=== PATIENT | female | born 1955 | race African-American/Black ===

== ENCOUNTER 2016-12-30 21:25 | Inpatient (IN) ==
[2016-12-30] MEDS ORDERED: ONDANSETRON 4 MG/2 ML VIAL IV STA (22:27)
[2016-12-30] MEDS ORDERED: SODIUM CHLORIDE 0.9% 1,000 ML IV STA (22:27)
[2016-12-30] MEDS ORDERED: PANTOPRAZOLE 40 MG VIAL IV STA (22:27)
[2016-12-30] MEDS ORDERED: METOCLOPRAMIDE 10 MG/2 ML VIAL IV STA (22:29)
--- NOTE | 2016-12-30 22:31 | Emergency Department Note ---
Arrival - Arrival Chief Complaint: Abdominal / Flank Pain Stated Complaint: stomach pain, cant keep food down ED Nursing Triage Note: C/O Left sided/upper abd pain/nasuea/vomiting. Onset lastnight. Denies diarrhea. Denies fever. Last [id number] Mode of Arrival: Ambulatory Limitations: No Limitations Source: Patient Time Seen by Provider: 12/30/16 22:27 - History of Present Illness HPI Narrative: This 61-year-old black female presents with abrupt onset of crampy abdominal pain, nausea, vomiting after waking this morning. She denies heartburn, belching, water brash, diarrhea, chills, or fever. She does not have a prior history of GERD, peptic ulcer disease, pancreatitis, or gallbladder disease. Onset (ago): hour(s) (Patient presents 12 hours post onset of symptoms) Date of Last Menstrual Period: Hysterectomy Allergies/Adverse Reactions: Allergies Allergy/AdvReac Type Severity Reaction Status Date / Time Amoxicillin Allergy HIVES Verified 12/30/16 22:51 Home Medications: Home Medications Medication Instructions Recorded Confirmed Type Bimatoprost 0.01% Oph Soln 1 drop BOTH EYES BEDTIME 12/30/16 12/30/16 History [Lumigan] Metoprolol Tartrate 100 mg PO DAILY 12/30/16 12/30/16 History Triamterene/Hydrochlorothiazid 1 each PO BID 12/30/16 12/30/16 History [Triamterene-Hctz 37.5-25 mg Tb] Review of System - Review of System 12 point system: reviewed and no additional remarkable complaints except as stated - Review of System Constitutional: Present: as per HPI Gastrointestinal: Present: as per HPI Medical,Surgical,& Family Hx - Medical History Cardio: History of: Hypertension - Social History Smoking Status: Never smoker Frequency of Alcohol Use: None Type of Drug Use: None Exam Physical Examination: GENERAL: Well developed, well nourished black female in no acute distress. HEENT: Normocephalic. No trauma. Moist mucous membranes. EOMI. PERRLA. ENT NML NECK: Supple. No adenopathy. CARDIAC: Regular. No murmurs. Heart rate 114 CHEST: Clear to auscultation. No respiratory distress. O2 sat 97% ABDOMEN: Soft. Diffusely tender, hyperactive bowel sounds. EXTREMITIES: No trauma. Normal ROM. No pedal edema. SKIN: No diaphoresis. No rash. NEURO: Alert. Neuro intact no focal deficits. Vital Signs: Vital Signs Temperature 98.3 F 12/30/16 21:31 Pulse Rate 114 H 12/30/16 21:31 Respiratory Rate 18 12/30/16 21:31 Blood Pressure 155/81 12/30/16 21:31 O2 Sat by Pulse Oximetry 97 12/30/16 21:31 Course - Reevaluation(s) Reevaluation #1: Advised patient she would need hospitalization for pancreatitis. - Consultations Consultation #1: Discussed with hospitalist service who will admit for further evaluation treatment. Results - Labs CBC & BMP: 12/30/16 23:00 12/30/16 23:00 Labs: I have noted the bump in white count, low potassium, and elevated lipase. - Impressions EKG: Sinus tachycardia at 100 with normal UT interval and QRS duration. Evidence of LVH with diffuse nonspecific ST changes but no acute injury pattern noted. - Diagnostic Findings Procedure: Abdominal x-ray: image reviewed by me, report reviewed by me (Fecal stasis) Disposition Clinical Impression: Pancreatitis Case discussed with: patient Disposition: Still a Patient Condition: Guarded Time of Disposition: 23:59
[2016-12-30] MEDS ORDERED: METOCLOPRAMIDE 10 MG/2 ML VIAL ONE (22:54)
[2016-12-30] MEDS ORDERED: PANTOPRAZOLE 40 MG VIAL IV ONE (22:54)
[2016-12-30] MEDS ORDERED: ONDANSETRON 4 MG/2 ML VIAL ONE (22:54)
--- NOTE | 2016-12-30 23:08 | EKG Report ---
Stationary ECG Study [facility] ER Test Date: 12/30/2016 11:07:46 PM Pat Name: MARCUS HAIRSTON Department: Room: Gender: F Finger Waver: : 1955 Requested by: Je Navarro Order Number: [id number] Reading MD: LIMA UGARTE Intervals Terral Rate: 101 P: 44 IA: 174 QRS: 21 QRSD: 80 T: 23 QT: 283 QTc: 341 Interpretive Statements SINUS TACHYCARDIA MODERATE VOLTAGE CRITERIA FOR LVH, CONSIDER NORMAL VARIANT Electronically Signed On 12-31-16 20:58:12 CDT by LIMA UGARTE [email or web address]
[2016-12-30 23:24] LABS: Basophils % 0.2 % (0.0-0.8); Hematocrit 37.1 VOL% (35.7-47.0); Hemoglobin 12.5 GM/DL (12.0-16.0); Immature Granulocytes % 0.8 %; Lymphocytes # 1.1 10*3/uL (1.4-4.0); Lymphocytes % 8.5 % (21.3-54.2); Mean Corpuscular HGB Conc 33.7 GM/DL (32-36); Mean Corpuscular Hemoglobin 30 PG (27-34); Mean Corpuscular Volume 88.8 FL (87-102); Mean Platelet Volume 9.5 FL (9.6-12.0); Monocytes # 1.2 10*3/uL (0.11-0.8); Monocytes % 9.3 % (1.7-12.7); Neutrophils # 10.6 10*3/uL (1.4-7.4); Neutrophils % 81.2 % (38.7-73.9); Platelet Count 251 T/CUMM (130-400); Red Blood Count 4.18 MC/CUMM (3.8-5.5); Red Cell Distribution Width 12.6 % (9.3-17.3); White Blood Count 13.1 T/CUMM (4-12)
[2016-12-30 23:35] LABS: Albumin 3.4 G/DL (3.4-5.0); Bilirubin,Total 0.4 MG/DL (0.2-1.0); Calcium 9.4 MG/DL (8.5-10.1); Potassium 3.1 MMOL/L (3.5-5.1); Total Protein 7.8 G/DL (6.4-8.3)
[2016-12-30 23:37] LABS: Apearance,Urine Slightly Hazy (Clear); Bilirubin,Urine Negative (Negative); Blood, Urine Negative (Negative); Glucose,Urine (UA) Negative (Negative); Ketones,Urine 20 mg/dL (Negative); Mucus,Urine Occasional /LPF (Occasional); Nitrite,Urine Negative (Negative); Protein,Urine Negative; RBC,Urine 1 /HPF (0-4); Squamous Epithelial Cell,Urine Occasional /HPF (0-10); Urine Color Yellow (Yellow); Urine Specific Gravity 1.028 (1.001-1.035); Urine Urobilinogen < 2.0 EU/DL (0.2-1.0); WBC,Urine 1 /HPF (0-6)
[2016-12-30 23:44] LABS: Troponin I Only < 0.015 NG/ML (0.00-0.045)
[2016-12-30 23:47] LABS: Lactic Acid 2.1 MMOL/L (0.4-2.0)
[2016-12-31] MEDS ORDERED: ONDANSETRON 4 MG/2 ML VIAL IV STA (00:25)
[2016-12-31] MEDS ORDERED: ONDANSETRON 4 MG/2 ML VIAL ONE ×3 (00:26→10:24)
--- NOTE | 2016-12-31 00:43 | Hospitalist History & Physical ---
Assessment and Plan - Time spent with patient Time spent with patient: Less than 30 minutes (1) Pancreatitis Status: Acute Assessment and plan: Pending CT scan Elevated amylase and lipase Will start Cipro IV Pain and nausea meds PRN Accuchecks ACHS with SSI Current Visit: Yes (2) Lactic acidosis Status: Acute Assessment and plan: Fluid resuscitation Will recheck in 6 hours Current Visit: Yes (3) Hypokalemia Status: Acute Assessment and plan: K rider Will recheck post replacement Current Visit: Yes (4) Leukocytosis Status: Acute Assessment and plan: Pending blood cultures Will start Cipro IV Afebrile at this time Current Visit: Yes (5) Hypertension Status: Chronic Assessment and plan: Will start home meds once confirmed Current Visit: No History of Present Illness Chief complaint: abdominal pain History of present illness: Called to the ER for Ms. Hugo who is a 61 year old female that began having upper abdominal pain last night around 2030 after getting out of the shower. Patient states it radiates around her left side into her back. She admits to multiple episodes of vomiting over the course of a day but denies chest pain, shortness of breath, fever, chills, coughing, or dysuria. Her last BM was at 1400 yesterday and describes it as normal. Lab work was performed that showed an elevated lipase, elevated white blood cell count, and lactic acidosis. CT A\ P is pending. Patient has a history of HTN, glaucoma, partial hysterectomy, and tubal ligation. She will be admitted into the hospital for fluid resuscitation, pain and nausea medications, IV antibiotics, ACHS with SSI, and repeat lab work. Home medications will be resumed once confirmed. Home Medications Medication Instructions Recorded Confirmed Type Bimatoprost 0.01% Oph Soln 1 drop BOTH EYES BEDTIME 12/30/16 12/30/16 History [Lumigan] Metoprolol Tartrate 100 mg PO DAILY 12/30/16 12/30/16 History Triamterene/Hydrochlorothiazid 1 each PO BID 12/30/16 12/30/16 History [Triamterene-Hctz 37.5-25 mg Tb] Allergies Allergy/AdvReac Type Severity Reaction Status Date / Time Amoxicillin Allergy HIVES Verified 12/30/16 22:51 Medical,Surgical,& Family Hx - Medical History Cardio: History of: Hypertension No history of: Cerebrovascular Disease, CHF Psychological: No history of: Anxiety Disorders Neurology: No history of: Neurological Problems HEENT: History of: Glaucoma, HEENT Problems (allergies) Endocrine: No history of: Endocrine Problems Rheumatology: No history of;: Rheumatological Problems Respiratory: No history of: Respiratory Problems Renal: No history of: Renal Problems Genitourinary: No history of: Problems Gastrointestinal: No history of: GI Problems Musculoskeletal: No history of: Musculoskeletal Problems Hematology: No history of: Blood Disorders Other: No history of: Skin Problems - Surgical History Reproductive Surgeries: Surgical HX of;: Dilation and Curettage, Hysterectomy ( partial) - Social History Smoking Status: Never smoker Have you smoked in the last 12 months: No Frequency of Alcohol Use: None Type of Drug Use: None Marital Status: Single Lives With:: Children Functional capacity: independent ambulation - Constitutional Constitutional: Present: anorexia. Absent: chills, fatigue, fever(s), night sweats, weakness - EENT Eyes: Absent: blurry vision - Cardiovascular Cardiovascular: Absent: chest pain at rest, chest pain with activity, diaphoresis, dyspnea, edema, lightheadedness, palpitations - Respiratory Respiratory: Absent: cough, dyspnea - Gastrointestinal Gastrointestinal: Present: abdominal pain (LUQ and RUQ), nausea, vomiting. Absent: coffee ground emesis, constipation, diarrhea, dyspepsia, dysphagia - Hematologic/Lymphatic Hematologic/Lymphatic: Absent: easy bleeding Exam - Constitutional Vitals: Period Temp Pulse Resp BP Sys/Jacome Pulse Ox Last 24 Hr 98.3 F 114 18 155/81 97 General appearance: normal weight, mild distress (nauseated) - Head Head exam: Present: normal inspection, normocephalic - Eye Eye exam: Present: EOMI Pupils: Present: LARRY, normal accommodation - ENT ENT exam: Present: normal exam - Neck Neck exam: Present: normal inspection - Respiratory Respiratory exam: Present: clear to auscultation bilaterally. Absent: accessory muscle use (Respirations even and non-labored with symmetrical rise and fall of chest noted. ) - Cardiovascular Cardiovascular exam: Present: regular rate and rhythm - GI/Abdominal GI/Abdominal exam: Present: hypoactive bowel sounds. Absent: distended, tenderness, soft - Extremities Exam Extremities exam: Present: normal inspection, normal capillary refill, full ROM - Back Exam Back exam: Present: normal inspection - Neurological Exam Neurological exam: Present: alert (Answers all questions appropriately. Makes good eye contact. ), oriented X3 - Psychiatric Psychiatric exam: Present: normal affect, normal mood - Skin Skin exam: Present: normal color, warm, dry, intact Results - Labs CBC & BMP: 12/30/16 23:00 12/30/16 23:00 Lab Results: I have reviewed the past 24 hour labs - EKG EKG results: WNL (Sinus tachycardia) - Diagnostic Findings Procedure: Abdominal x-ray: image reviewed by me (Fecal Stasis)
[2016-12-31] MEDS ORDERED: DOCUSATE SODIUM 100 MG CAPSULE PO PRN (02:07)
[2016-12-31] MEDS ORDERED: INSULIN LISPRO 100 UNIT/ML SUBCUT SCH (02:07)
[2016-12-31] MEDS ORDERED: GLUCAGON 1 MG VIAL IM PRN (02:07)
[2016-12-31] MEDS ORDERED: ONDANSETRON 4 MG/2 ML VIAL IV PRN ×2 (02:07→10:56)
[2016-12-31] MEDS ORDERED: DEXTROSE 50% 25 GM/50 ML SYRINGE IV PRN (02:07)
[2016-12-31] MEDS ORDERED: SODIUM CHLORIDE 0.9% 1,000 ML IV ONE (02:07)
[2016-12-31] MEDS: SODIUM CHLORIDE 0.9% 1,000 ML IV SCH ×3 (02:33→19:49)
[2016-12-31] MEDS: HYDROmorphone 2 MG/1 ML VIAL IV PRN ×5 (02:37→19:45)
[2016-12-31] MEDS: CIPROFLOXACIN INJ 400 MG in PREMIX 1 EACH IV SCH ×2 (02:40→21:29)
[2016-12-31] MEDS: metroNIDAZOLE INJ 500 MG in PREMIX 1 EACH IV SCH ×3 (04:18→19:45)
[2016-12-31 05:17] LABS: Basophils % 0.1 % (0.0-0.8); Hemoglobin 11.1 GM/DL (12.0-16.0); Immature Granulocytes % 0.8 %; Immature Granulocytes Absolute 0.11 #; Lymphocytes # 1.4 10*3/uL (1.4-4.0); Mean Corpuscular HGB Conc 33.6 GM/DL (32-36); Mean Corpuscular Hemoglobin 30 PG (27-34); Mean Corpuscular Volume 89.4 FL (87-102); Mean Platelet Volume 9.8 FL (9.6-12.0); Monocytes # 1.4 10*3/uL (0.11-0.8); Monocytes % 9.7 % (1.7-12.7); Neutrophils # 11.1 10*3/uL (1.4-7.4); Neutrophils % 79.4 % (38.7-73.9); Platelet Count 226 T/CUMM (130-400); Red Blood Count 3.69 MC/CUMM (3.8-5.5); Red Cell Distribution Width 12.7 % (9.3-17.3); White Blood Count 13.9 T/CUMM (4-12)
[2016-12-31] MEDS: POTASSIUM CHLORIDE RIDER 10 MEQ in PREMIX 1 EACH IV SCH ×4 (05:22→12:00)
[2016-12-31 05:39] LABS: Albumin 2.8 G/DL (3.4-5.0); Bilirubin,Total 0.4 MG/DL (0.2-1.0); Calcium 8.5 MG/DL (8.5-10.1); Magnesium 1.6 MG/DL (1.8-2.4); Potassium 3.1 MMOL/L (3.5-5.1); Total Protein 6.6 G/DL (6.4-8.3)
--- NOTE | 2016-12-31 07:04 | CT Report ---
Exam: CT abdomen with intravenous contrast Exam date: 12/30/2016 11:52 PM Clinical History: 61-year-old,Female, nausea and vomiting with abdominal pain. Technique: Axial computed tomography images of the abdomen with intravenous contrast. All CT scans at this facility use one or more dose reduction techniques. Automated exposure control, MA/KV adjustment per patient size (including targeted exam Square dose is matched to indication) or iterative reconstruction technique Contrast: 100 mL of Omnipaque 350 administered intravenously Comparison: No relevant prior studies Findings: Lower thorax: Moderate hiatal hernia Abdomen: Liver: Normal Gallbladder and bile ducts: Large stones within a circumferentially thickened gallbladder. Trace pericholecystic fluid. Small volume air within the distal common bile duct and proximal pancreatic ducts. Pancreas: No focal parenchymal abnormalities. Spleen: Spleen is normal. Adrenals: No adrenal mass. Kidneys and ureters: Kidneys are normal in size, morphology and enhancement. No hydronephrosis. No ureteral calculus. Stomach and bowel: No evidence of acute gastritis, colitis or enteritis. No bowel obstruction. Intraperitoneal space: No pneumoperitoneum. No significant intraperitoneal fluid Bones/joints: No acute osseous abnormality Soft tissues: No mass Vasculature: No aortic aneurysm. . Lymph nodes: No adenopathy Impression: 1. Cholelithiasis with findings concerning for acute cholecystitis 2. Small amount of air within the common bile duct and proximal pancreatic duct 3. Moderate hiatal hernia PROCEDURE INTERPRETED AT [facility] DEPARTMENT OF RADIOLOG[facility] Final Report Signed by: Kostas Baron
--- NOTE | 2016-12-31 07:14 | XRay Report ---
EXAM: XR abdomen 2V CLINICAL INDICATION: Abdominal Pain COMPARISON: None Findings: No gastric distention. [No abnormally dilated small bowel loops are identified to suggest obstruction. No free intraperitoneal air.] [Large calcific density superimposed over the right upper quadrant suggest large gallstones. Rounded density to the right at the level of the inferior L4 endplate. Hepatic shadow appears somewhat prominent. IMPRESSION: 1. Suspect gallstones 2. Small density within the right lower abdomen near midline, could not exclude ureteral stone PROCEDURE INTERPRETED AT [facility] DEPARTMENT OF RADIOLOGY Final Report Signed by: Kostas Baron
[2016-12-31] MEDS: ENOXAPARIN 40 MG/0.4 ML SYRINGE SUBCUT SCH (07:59)
[2016-12-31] MEDS: PANTOPRAZOLE 40 MG TABLET PO SCH (08:06)
--- NOTE | 2016-12-31 08:13 | General Surgery Consult Note ---
Assessment and Plan (1) Cholecystitis Status: Acute Assessment and plan: This patient was admitted with acute cholecystitis. She has some imaging findings of air in the distal bile duct and pancreatic duct on her CT scan but she does not appear to have cholangitis clinically and there are no stones seen there. She has no biliary ductal dilation and her bilirubin is normal. Her lipase was not elevated enough to classify her as pancreatitis. He is not having tenderness in the area of pancreatitis and clinically I do not think she meets a diagnosis of this. I have recommended a laparoscopic cholecystectomy with intraoperative cholangiogram to evaluate findings seen on her CT scan and her distal bile duct and pancreatic duct. I do not believe this represents some sort of fistula based on her CT scan. I have discussed the risks, benefits , and alternatives of the operation with the patient, and the expected outcomes have been reviewed. I have also discussed the possibility of an open procedure. In particular, I discussed the risk of bleeding, infection, hernias of the abdominal wall, injury to the intestines or liver, pancreatitis, dropped or retained stones in the abdomen, bile leak, and bile duct injury. The patient 's questions have been answered. I have entertained the possibility of a preoperative ERCP but would not recommend it based on the findings of little bit of air in the distal bile duct and pancreatic duct alone. Her bile duct is normal size and her bilirubin is normal. We will evaluate her bile duct with a cholangiogram in the operating room and if it is necessary to get gastroenterology involved I will call them afterwards. Current Visit: Yes History of Present Illness Chief complaint: Abdominal pain History of present illness: Ms. Hugo is a 61 year old female with right upper quadrant abdominal pain that radiates through to the back was admitted through the ER yesterday with CT scan that showed cholecystitis and gallstones in the gallbladder. There is also small amount of air in the distal bile duct and pancreatic duct. No stones were seen and there is no biliary ductal dilation and her bilirubin was normal. She is admitted to the hospitalist service and I was consulted for management of her gallstones and inflammation around the gallbladder. She has had ectopic surgery and also a partial hysterectomy in the past. Home Medications Medication Instructions Recorded Confirmed Type Bimatoprost 0.01% Oph Soln 1 drop BOTH EYES BEDTIME 12/30/16 12/31/16 History [Lumigan] Metoprolol Tartrate 100 mg PO BID 12/30/16 12/31/16 History Triamterene/Hydrochlorothiazid 1 each PO BID 12/30/16 12/31/16 History [Triamterene-Hctz 37.5-25 mg Tb] Allergies Allergy/AdvReac Type Severity Reaction Status Date / Time Amoxicillin Allergy Unknown HIVES Verified 12/31/16 02:20 Medical,Surgical,& Family Hx - Medical History Cardio: History of: Hypertension No history of: Cerebrovascular Disease, CHF Psychological: No history of: Anxiety Disorders Neurology: No history of: Neurological Problems HEENT: History of: Glaucoma, HEENT Problems (allergies) Endocrine: No history of: Endocrine Problems Rheumatology: No history of;: Rheumatological Problems Respiratory: No history of: Respiratory Problems Renal: No history of: Renal Problems Genitourinary: No history of: Problems Gastrointestinal: No history of: GI Problems Musculoskeletal: No history of: Musculoskeletal Problems Hematology: No history of: Blood Disorders Other: No history of: Skin Problems - Surgical History Reproductive Surgeries: Surgical HX of;: Dilation and Curettage, Hysterectomy ( partial) - Family History Family History: Reports;: Family Diabetes (sisters), Family Heart Disease ( father), Family Hypertension (father) - Social History Smoking Status: Never smoker Frequency of Alcohol Use: None Type of Drug Use: None - Constitutional Constitutional: Present: as per HPI - EENT Nose, mouth and throat: Present: as per HPI - Cardiovascular Cardiovascular: Present: as per HPI - Respiratory Respiratory: Present: as per HPI - Gastrointestinal Gastrointestinal: Present: as per HPI - Genitourinary Genitourinary: Present: as per HPI - Musculoskeletal Musculoskeletal: Present: as per HPI - Neurological Neurological: Present: as per HPI - Endocrine Endocrine: Present: as per HPI Hematologic/Lymphatic: Present: as per HPI Exam - Constitutional Vitals: Period Temp Pulse Resp BP Sys/Jacome Pulse Ox Last 24 Hr 97.9 F-99.2 F 106-114 18-20 116-155/66-81 94-97 General appearance: no acute distress, over weight - Head Head exam: Present: normal inspection, normocephalic - Eye Eye exam: Present: EOMI Pupils: Present: LARRY - ENT ENT exam: Present: normal exam Mouth exam: Present: normal external inspection, normal voice - Neck Neck exam: Present: normal inspection, trachea midline - Respiratory Respiratory exam: Present: clear to auscultation bilaterally. Absent: accessory muscle use, chest wall tenderness - Cardiovascular Cardiovascular exam: Present: RRR. Absent: systolic murmur, tachycardia - GI/Abdominal GI/Abdominal exam: Present: normal bowel sounds, Pelletier's sign, soft. Absent: ascites, distended, tenderness, rebound - Extremities Exam Extremities exam: Present: normal inspection, normal capillary refill - Back Exam Back exam: Present: normal inspection - Neurological Exam Neurological exam: Present: alert, oriented X3 Speech: Present: normal - Skin Skin exam: Present: normal color, warm Results - Labs CBC & BMP: 12/31/16 04:45 12/31/16 04:45 - Diagnostic Findings Procedure: CT Abdomen and Pelvis: image reviewed by me, report reviewed by me ( There is inflammation around the gallbladder with a little bit of pericholecystic fluid. There are large stones in the gallbladder with air within them. The outer rims are all calcified. There is some some small amount of air in the distal bile duct and pancreatic duct there is no bile duct dilation or pancreatic duct dilation and no inflammatory changes there. Her bilirubin is normal as well.)
[2016-12-31] MEDS ORDERED: LIDOCAINE 1%/EPI INJ 20 ML VIAL ONE (08:30)
[2016-12-31] MEDS ORDERED: TISSUE ADHESIVE 1 EACH APPLICATOR TOP ONE (08:30)
--- NOTE | 2016-12-31 09:53 | Fluoroscopy Report ---
[place] cholangiogram in surgery Indication: Cholecystectomy. Intraoperative cholangiogram: Fluoroscopy time 46 seconds, 124 captured images. Contrast injection via cystic duct remnant during cholecystectomy show 2 small persistent filling defects near the confluence of the common hepatic duct and cystic duct that do not move. There is no duct dilatation present. Prompt spillage of contrast into the small bowel noted. Impression: 2 small filling defects at the confluence of the common hepatic and cystic duct suspicious for retained stones. PROCEDURE INTERPRETED AT [facility] DEPARTMENT OF RADIOLOGY Final Report Signed by: Jose David Andrews M.D.
--- NOTE | 2016-12-31 10:03 | Operative Note ---
Date of procedure: 12/31/16 Pre-op diagnosis: Acute cholecystitis with pneumobilia Post-op diagnosis: same Procedure: Preoperative diagnosis Acute cholecystitis with pneumobilia Postoperative diagnosis Same Procedures performed Laparoscopic cholecystectomy with intraoperative cholangiogram Findings Acute and chronic cholecystitis was seen. The critical view of safety was obtained prior to placing clips on the cystic duct and cystic artery. The cholangiogram revealed 2 retained stones just distal to the cystic duct within the common bile duct. These were nonocclusive Complications None apparent Specimen Gallbladder Anesthesia GETA Blood loss 5 mL Indications The patient was admitted with acute cholecystitis with pneumobilia. Her LFTs were normal and her CT showed no bile duct dilation. She did have some pneumobilia and air in her pancreatic duct on CT and I recommended a laparoscopic cholecystectomy with cholangiogram. The risks, benefits, and alternatives of the operation were discussed with the patient in detail, and the expected outcomes were reviewed. In particular, the risk of bowel injury, liver injury, bile duct leak and bile duct injury, as well as pancreatitis and retained or drop stones were discussed in detail. All the patient's questions were answered. She like to proceed with the operation. Description of procedure The patient was taken to the operating room and transferred to the operating table in the supine position. Pressure points were padded and SCDs were placed to bilateral lower extremities. General endotracheal anesthesia was administered. The abdomen was prepped chlorhexidine and draped sterilely. Preoperative antibiotics were administered, a timeout was performed. The abdomen was entered in a supraumbilical location of the Veress needle. The skin incision was made in the supraumbilical location with a 11 blade scalpel after local anesthetic was administered. Umbilical stalk was grasped with a penetrating towel clip. A Veress needle was used to enter the peritoneal cavity confirmed by double click technique. Aspiration was negative. Saline drop test confirmed intraperitoneal location. The abdomen was insufflated to 15 mmHg with an initial insufflation pressure of 6 mmHg. The Veress needle was removed and a 5 mm trocar was placed blindly. The towel clip was removed. Diagnostic laparoscopy was performed. There is no evidence of Veress needle or trocar injury. The patient was placed in reverse Trendelenburg and left side rolled down position. Under direct visualization, and after local anesthetic was administered, an 11 mm midepigastric trocar and 2 right subcostal 5 mm trochars were placed. 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 The adhesions between the liver and the peritoneum were taken down with scissors. The gallbladder was grasped at the fundus and infundibulum. The cystic plate peritoneum was dissected until the critical view of safety was obtained. There was significant inflammatory changes but the dissection was relatively simple because of the phase of inflammation with no fibrotic changes. The cystic duct was clipped once laterally and the cystic artery was clipped twice centrally and once laterally. A cystic ductotomy was made and a cholangiogram catheter was inserted into the cystic duct. A cholangiogram revealed 2 residual retained stones in the bile duct just beyond the cystic duct but these were nonocclusive and there was good flow into the duodenum. There is nothing seen in the distal bile duct that was concerning. The cystic duct was very shriveled and tortuous and was unable to be traversed with a wire for any sort of trans-cystic stone removal so I decided to finish the case and get a postoperative GI consult for an ERCP. The cystic duct was clipped 3 times centrally central to the cystic ductotomy and divided at the cystic ductotomy site. The cystic artery was then divided between clips. Gallbladder was removed from the gallbladder fossa using hook electrocautery. The gallbladder was placed in a Endo Catch retrieval bag through the 11 mm trocar and removed through the trocar with significant fascial extension of the incision. The fascia was closed with a laparoscopic suture passer using 0 Vicryl [id number]-[id number] suture with no residual fascial defect. The gallbladder fossa was suction irrigated until the effluent was clear. The CO2 was released from the abdomen and the trochars were removed. The skin incisions were closed with 4-0 Monocryl subcuticular suture and sterile skin glue. The patient was awakened from anesthesia and transferred to recovery. Postoperative plan Postoperative ERCP Pain control Anesthesia: NIKOLAIA, local Surgeon / Physician: Eric Rangel Estimated blood loss: minimal Specimens: other (gallbladder) Condition: stable Disposition: PACU Results - Labs CBC & BMP: 12/31/16 04:45 12/31/16 04:45 Discharge Plan - Discharge Medications New HYDROcodone/ACETAMIN 7.5-325 [[place] 7.5-325] 1 tablet PO Q4H PRN #20 tablet PRN Reason: Pain No Action Metoprolol Tartrate 100 mg PO BID Triamterene/Hydrochlorothiazid [Triamterene-Hctz 37.5-25 mg Tb] 1 each PO BID Bimatoprost 0.01% Oph Soln [Lumigan] 1 drop BOTH EYES BEDTIME - Follow Up or Referral Follow Up: Eric Rangel MD [Physician] - 2 Weeks - Forms/Instructions
--- NOTE | 2016-12-31 10:11 | Anesthesia Post-Op ---
Anesthesia Post OP - Post Ansesthetic Evaluation Patient seen in post op: Yes Resp: within normal limits CV: within normal limits Mental: within normal limits Temp: within normal limits Jody-Ps-Flycejecr: within normal limits Nausea and Vomiting: within normal limits Pain: within normal limits
[2016-12-31] MEDS ORDERED: fentaNYL 100 MCG/2 ML VIAL ONE (10:16)
[2016-12-31] MEDS ORDERED: GLYCOPYRROLATE 0.4 MG/2 ML VIAL ONE (10:16)
[2016-12-31] MEDS ORDERED: PROPOFOL 200 MG/20 ML VIAL IV ONE (10:16)
[2016-12-31] MEDS ORDERED: NEOSTIGMINE 10 MG/10 ML VIAL ONE (10:16)
[2016-12-31] MEDS ORDERED: SEVOFLURANE 1 UNIT/15 MINUTE INH ONE (10:16)
[2016-12-31] MEDS ORDERED: SUCCINYLCHOLINE 200 MG/10 ML VIAL ONE (10:17)
[2016-12-31] MEDS ORDERED: ROCURONIUM 100 MG/10 ML VIAL IV ONE (10:17)
[2016-12-31] MEDS ORDERED: HYDROmorphone 2 MG/1 ML VIAL ONE (10:23)
--- NOTE | 2016-12-31 11:40 | Hospitalist Progress Note ---
Assessment and Plan (1) Pancreatitis Status: Acute Current Visit: Yes (2) Hypokalemia Status: Acute Assessment and plan: Her potassium today is 3.1. She will receive potassium chloride replacement. Current Visit: Yes (3) Cholecystitis Status: Acute Assessment and plan: Stable status post cholecystectomy. Current Visit: Yes Hospitalist: Subjective Interval history: She is stable status post cholecystectomy. Exam - Constitutional Vitals: Period Temp Pulse Resp BP Sys/Jacome Pulse Ox Last 24 Hr 97.6 F-99.2 F 84-114 16-20 116-155/66-95 94-100 General appearance: no acute distress - Head Head exam: Present: normal inspection - Neck Neck exam: Present: normal inspection - Respiratory Respiratory exam: Present: clear to auscultation bilaterally - Cardiovascular Cardiovascular exam: Present: regular rate and rhythm - GI/Abdominal GI/Abdominal exam: Present: normal bowel sounds, other (Abdomen is bandaged.) - Extremities Exam Extremities exam: Present: normal inspection - Skin Skin exam: Present: normal color, warm, intact Results - Labs CBC & BMP: 12/31/16 04:45 12/31/16 04:45 Specialty Discharge - Follow Up or Referrals Follow up with: Eric Rangel MD [Physician] - 2 Weeks
--- NOTE | 2016-12-31 13:05 | Gastrointestinal Consult Note ---
<Raven Garcia - Last Filed: 12/31/16 13:01> Assessment and Plan (1) Abdominal pain Status: Acute Assessment and plan: 12/31-abrupt onset of abdominal pain with associated nausea vomiting with findings of cholecystitis with pneumobilia. Post laparoscopic cholecystectomy with intraoperative cholangiogram showing 2 retained stones distal to the cystic duct within the common bile duct. Normal LFTs. Plan to proceed with ERCP tomorrow to further evaluate. Plan an addendum to follow Dr. Ramon. Current Visit: Yes History of Present Illness Chief complaint: Abdominal pain History of present illness: Ms. Hugo is a 61 year old female who was admitted to the hospital last night with onset of abdominal pain that began abruptly after she was getting out of shower. The pain reportedly was in her left side and radiated around to her back. She developed episodes of nausea and vomiting however denies any other associated symptoms. She came to the emergency room for further evaluation at that time and was found to have an elevated lipase level as well as leukocytosis and lactic acidosis. She was not found on admission to have elevated LFTs. On admission she also had a CT of the abdomen which showed cholecystitis as well as gallstones in the gallbladder and pneumobilia at the distal bile duct and pancreatic duct. No stones were visualized at that time. She underwent a laparoscopic cholecystectomy this morning with intraoperative cholangiogram which revealed 2 retained stones distal to the cystic duct within the common bile duct. Patient is resting comfortably postoperatively without complaints at present time. Discussion with Dr. Rangel regarding surgical findings and recommendation for ERCP to further investigate cholangiogram findings. Discussed with patient and family at bedside regarding proceeding with ERCP including risk and benefits. Home Medications Medication Instructions Recorded Confirmed Type Bimatoprost 0.01% Oph Soln 1 drop BOTH EYES BEDTIME 12/30/16 12/31/16 History [Lumigan] Metoprolol Tartrate 100 mg PO BID 12/30/16 12/31/16 History Triamterene/Hydrochlorothiazid 1 each PO BID 12/30/16 12/31/16 History [Triamterene-Hctz 37.5-25 mg Tb] HYDROcodone/ACETAMIN 7.5-325 1 tablet PO Q4H PRN #20 tablet 12/31/16 Rx [[place] 7.5-325] Allergies Allergy/AdvReac Type Severity Reaction Status Date / Time Amoxicillin Allergy Unknown HIVES Verified 12/31/16 02:20 Medical,Surgical,& Family Hx - Medical History Cardio: History of: Hypertension No history of: Cerebrovascular Disease, CHF Psychological: No history of: Anxiety Disorders Neurology: No history of: Neurological Problems HEENT: History of: Glaucoma, HEENT Problems (allergies) Endocrine: No history of: Endocrine Problems Rheumatology: No history of;: Rheumatological Problems Respiratory: No history of: Respiratory Problems Renal: No history of: Renal Problems Genitourinary: No history of: Problems Gastrointestinal: No history of: GI Problems Musculoskeletal: No history of: Musculoskeletal Problems Hematology: No history of: Blood Disorders Other: No history of: Skin Problems - Surgical History Reproductive Surgeries: Surgical HX of;: Dilation and Curettage, Hysterectomy ( partial) - Family History Family History: Reports;: Family Diabetes (sisters), Family Heart Disease ( father), Family Hypertension (father) - Social History Smoking Status: Never smoker Frequency of Alcohol Use: None Type of Drug Use: None 12 point system: reviewed and no additional remarkable complaints except as stated - Constitutional Constitutional: Present: as per HPI - EENT Eyes: Present: as per HPI Ears: Present: as per HPI Nose, mouth and throat: Present: as per HPI - Cardiovascular Cardiovascular: Present: as per HPI - Respiratory Respiratory: Present: as per HPI - Gastrointestinal Gastrointestinal: Present: as per HPI, abdominal pain, nausea, vomiting - Genitourinary Genitourinary: Present: as per HPI - Musculoskeletal Musculoskeletal: Present: as per HPI - Neurological Neurological: Present: as per HPI - Psychiatric Psychiatric: Present: as per HPI - Endocrine Endocrine: Present: as per HPI - Hematologic/Lymphatic Hematologic/Lymphatic: Present: as per HPI Exam - Constitutional Vitals: Period Temp Pulse Resp BP Sys/Jacome Pulse Ox Last 24 Hr 97.6 F-99.2 F 84-114 16-20 116-155/66-95 94-100 General appearance: normal weight, no acute distress - Head Head exam: Present: normal inspection, normocephalic - Eye Eye exam: Present: other (Lids and conjunctivae are unremarkable). Absent: scleral icterus - ENT ENT exam: Present: normal exam, normal oropharynx - Neck Neck exam: Present: normal inspection - Respiratory Respiratory exam: Present: clear to auscultation bilaterally. Absent: rales, rhonchi, wheezes - Cardiovascular Cardiovascular exam: Present: regular rate and rhythm. Absent: diastolic murmur , JVD, systolic murmur - GI/Abdominal GI/Abdominal exam: Present: normal bowel sounds, tenderness, soft. Absent: ascites, distended, mass, organomegaly - Extremities Exam Extremities exam: Present: normal inspection, full ROM - Back Exam Back exam: Present: normal inspection - Neurological Exam Neurological exam: Present: alert, oriented X3 - Psychiatric Psychiatric exam: Present: normal affect, normal mood - Skin Skin exam: Present: normal color, warm, dry Results - Labs CBC & BMP: 12/31/16 04:45 12/31/16 04:45 Lab Results: I have reviewed the past 24 hour labs - Diagnostic Findings Procedure: Ultrasound: report reviewed by me Specialty Discharge - Follow Up or Referrals Follow up with: Eric Rangel MD [Physician] - 2 Weeks <Sanjeev Ramon - Last Filed: 12/31/16 19:55> History of Present Illness History of present illness: Ms. Hugo is a 61 year old female Exam - Constitutional Vitals: Period Temp Pulse Resp BP Sys/Jacome Pulse Ox Last 24 Hr 97.5 F-99.2 F 84-114 12-20 105-155/66-95 94-100 Results - Labs CBC & BMP: 12/31/16 04:45 12/31/16 04:45
--- NOTE | 2016-12-31 21:23 | Event Note ---
General Surgery Progress Note Chief complaint This patient is a 61-year-old woman admitted with cholecystitis treated with laparoscopic cholecystectomy with intraoperative cholangiogram showing to retained stone in the bile duct on 12/31/2016 Interval history No events since surgery. Dr. Ramon has seen the patient and is agreeing to do ERCP tomorrow to evaluate for and treat any retained stones. The patient is resting comfortably. She tolerated her diet well today. Physical exam Afebrile, tachycardic 107 but normal blood pressure and normal oxygen saturations on room air Abdomen with expected postoperative tenderness Labs None new Imaging None new Assessment and plan Repeat blood work in the morning ERCP planned for tomorrow N.p.o. after midnight
[2017-01-01] MEDS: ACETAMINOPHEN 325 MG TABLET PO PRN ×2 (00:20→20:32)
[2017-01-01] MEDS: HYDROmorphone 2 MG/1 ML VIAL IV PRN ×2 (00:20→13:56)
[2017-01-01] MEDS: ALBUTEROL/IPRATROPIUM 3 ML NEB RESP TX PRN (00:35)
[2017-01-01] MEDS: metroNIDAZOLE INJ 500 MG in PREMIX 1 EACH IV SCH ×3 (04:12→20:27)
[2017-01-01 06:19] LABS: Basophils % 0.3 % (0.0-0.8); Hematocrit 31.1 VOL% (35.7-47.0); Hemoglobin 10.5 GM/DL (12.0-16.0); Immature Granulocytes % 0.5 %; Immature Granulocytes Absolute 0.07 #; Lymphocytes # 1.2 10*3/uL (1.4-4.0); Lymphocytes % 8.7 % (21.3-54.2); Mean Corpuscular HGB Conc 33.8 GM/DL (32-36); Mean Corpuscular Hemoglobin 30 PG (27-34); Mean Corpuscular Volume 90.1 FL (87-102); Mean Platelet Volume 10.3 FL (9.6-12.0); Monocytes # 1.4 10*3/uL (0.11-0.8); Neutrophils # 11.3 10*3/uL (1.4-7.4); Neutrophils % 80.5 % (38.7-73.9); Platelet Count 196 T/CUMM (130-400); Red Blood Count 3.45 MC/CUMM (3.8-5.5); Red Cell Distribution Width 13.2 % (9.3-17.3)
[2017-01-01 06:23] LABS: INR 1.3; PT Patient Result 14.1 SECS
[2017-01-01 06:58] LABS: Osmolality,Calculated 273.7 MOS/KG (273-304); Potassium 3.7 MMOL/L (3.5-5.1)
[2017-01-01] MEDS ORDERED: GLUCAGON 1 MG VIAL ONE (08:30)
[2017-01-01] MEDS: ENOXAPARIN 40 MG/0.4 ML SYRINGE SUBCUT SCH (08:55)
[2017-01-01] MEDS: PANTOPRAZOLE 40 MG TABLET PO SCH ×2 (09:00→19:15)
[2017-01-01] MEDS: CIPROFLOXACIN INJ 400 MG in PREMIX 1 EACH IV SCH ×2 (09:19→21:00)
--- NOTE | 2017-01-01 09:24 | Hospitalist Progress Note ---
Assessment and Plan (1) Pancreatitis Status: Acute Assessment and plan: She is not complaining of abdominal pain, nausea, or vomiting. Current Visit: Yes (2) Hypokalemia Status: Acute Assessment and plan: Her potassium today is 3.7. Current Visit: Yes (3) Cholecystitis Status: Acute Assessment and plan: She is status post cholecystectomy. She is to undergo ERCP today. Current Visit: Yes (4) Renal insufficiency Status: Acute Assessment and plan: Her BUN and creatinine today are 11 and 1.1. They were 16 and 1.2 on admission. She will continue to receive sodium chloride 0.9% intravenous infusion. Current Visit: Yes Hospitalist: Subjective Interval history: Patient is stable status post laparoscopic cholecystectomy yesterday. She is experiencing only mild postoperative incisional pain. She is to undergo an ERCP today. Exam - Constitutional Vitals: Period Temp Pulse Resp BP Sys/Jacome Pulse Ox Last 24 Hr 97.5 F-100.2 F 84-112 12-24 105-145/64-95 95-100 General appearance: no acute distress - Head Head exam: Present: normal inspection - Neck Neck exam: Present: normal inspection - Respiratory Respiratory exam: Present: clear to auscultation bilaterally - Cardiovascular Cardiovascular exam: Present: regular rate and rhythm - GI/Abdominal GI/Abdominal exam: Present: normal bowel sounds, soft, other (Nontender with no palpable masses or hepatosplenomegaly.) - Extremities Exam Extremities exam: Present: normal inspection - Skin Skin exam: Present: normal color, warm, intact Results - Labs CBC & BMP: 01/01/17 04:23 01/01/17 04:23 Specialty Discharge - Follow Up or Referrals Follow up with: Eric Rangel MD [Physician] - 2 Weeks
--- NOTE | 2017-01-01 09:46 | Physician Query Form ---
CLICK EDIT DOCUMENT TO SELECT QUERY ANSWER --> OK --> SIGN Andria Caldera RN, CCDS Certified Clinical Marketing Compliance Manager W) [phone] (f) [phone] [email or web address]: Make your selection(s) from the choices in EACH section by typing an "x" and enter comments in the comment section. Please use your independent medical judgment in providing your response. This request does not imply that any particular answer is desired or expected. CLINICAL INDICATORS: (Providers should not edit this section) The below diagnosis was documented in the record, but is not consistently noted in subsequent documentation. The medical record indicates that the patient was admitted with Cholecystitis ( acute), Pancreatitis, Lipase of 723.0, and -------Per surgical consultation----- "Her lipase was not elevated enough to classify her as pancreatitis. He is not having tenderness in the area of pancreatitis and clinically I do not think she meets a diagnosis of this", as the attending MD can you please clarify if the Pancreatitis was ? Diagnosis: Pancreatitis Please clarify the following: ( ) The above diagnosis was monitored, evaluated, and/or treated and is a confirmed diagnosis ( x) The above diagnosis was ruled out ( ) The above diagnosis is still a likely, suspected, probable diagnosis ( ) Other, please specify: ( ) Clinically unable to determine COMMENTS: PLEASE ALSO DOCUMENT RESPONSE IN PROGRESS NOTES AND/OR DISCHARGE SUMMARY Use of terms such as suspected, likely, or probable (associated with a specific diagnosis that is being evaluated, monitored, or treated as if it exists) are acceptable and can be restated in the discharge summary if not ruled out. MTDD
[2017-01-01] MEDS ORDERED: fentaNYL 100 MCG/2 ML VIAL ONE (10:04)
[2017-01-01] MEDS ORDERED: PROPOFOL 200 MG/20 ML VIAL IV ONE (10:45)
[2017-01-01] MEDS ORDERED: SUCCINYLCHOLINE 200 MG/10 ML VIAL ONE (10:45)
[2017-01-01] MEDS ORDERED: ONDANSETRON 4 MG/2 ML VIAL ONE (10:45)
[2017-01-01] MEDS ORDERED: GLYCOPYRROLATE 0.4 MG/2 ML VIAL ONE (10:45)
[2017-01-01] MEDS ORDERED: ESMOLOL 100 MG/10 ML VIAL IV ONE (10:45)
[2017-01-01] MEDS ORDERED: ROCURONIUM 100 MG/10 ML VIAL IV ONE (10:45)
[2017-01-01] MEDS ORDERED: NEOSTIGMINE 10 MG/10 ML VIAL ONE (10:45)
[2017-01-01] MEDS ORDERED: LIDOCAINE 2% 5 ML VIAL ONE (10:45)
--- NOTE | 2017-01-01 11:21 | Pathology Report from [facility] ---
[facility] ACCESSION # : [id number] PATIENT NAME : Audra Hugo ORDERING DR : Eric Rangel MD CLINICAL HX: Cholelithiasis POST-OP DX: Same SPECIMEN INFO: Gallbladder GROSS DESCRIPTION: The specimen is received in formalin labeled with the patients name and consists of an opened gallbladder measuring 8.8 x 3.2 cm. The serosa is smooth and erythematous. The wall averages 0.3 cm in thickness. The mucosal surface is ulcerated, red-do with multiple brown-black stones noted measuring from 0.1 cm to 3.5 x 2.8 cm in greatest dimension. Tonnage Compilation Clerk sections submitted in one cassette. DIAGNOSIS FOR UADRA HUGO: GALLBLADDER, CHOLECYSTECTOMY: Acute and chronic cholecystitis. Cholelithiasis. COLLECTED DATE: 12/31/2016 [facility] REPORT DATE: 01/01/2017 ELECTRONICALLY SIGNED BY: Lou Serrano M.D. 01/01/2017 - 9:20:04 [email or web address]
--- NOTE | 2017-01-01 11:35 | History and Physical Update ---
History and Physical Update - Physical Exam Mental Status: alert and oriented Heart: regular rate and rhythm Lung: clear to auscultation Abdomen: within normal limits Vitals: within normal limits
--- NOTE | 2017-01-01 11:38 | Operative Note ---
Date of procedure: 01/01/17 Pre-op diagnosis: Suspected choledocholithiasis and pneumobilia Procedure: Endoscopic retrograde cholangiopancreatography with sphincterotomy and balloon stone extraction 61-year-old female status post cholecystectomy with findings of pneumobilia and choledocholithiasis on intraoperative cholangiogram now for ERCP to further evaluate. Informed consent was obtained the patient She was placed in the prone position following placement of the ET tube for general endotracheal anesthesia. The Olympus flexible video duodenum scope was inserted under blind passage into the esophagus the esophagus was essentially normal in the stomach there is a large amount of retained food. Pylorus was normal duodenum is remarkable for a very large periampullary diverticulum and what appears to be prior sphincterotomy from a previous procedure. There is a lot of edema and the possibility of passed stone would also be entertained. Utilizing sphincterotome pancreatic duct was opacified revealing a normal pancreatic duct to the head body and tail the pancreas. The catheter was repositioned with prompt visualization of the common bile duct however due to the periampullary diverticulum we had a lot of difficulty in getting a wire to go up her bile duct. We were ultimately successful at obtaining deep cannulation of the common bile duct. Several refractory densities were noted suspicious for stones. No biliary leak was seen. Selective pre-proceed with repeat sphincterotomy and an 8 mm sphincterotomy was performed without difficulty. Subsequent balloon catheter was inserted into the region of the alicia hepatis inflated to 10 mm of brought out in the duodenum without difficulty. Good hemostasis was noted and the procedure was terminated. Patient was discharged recovery in good condition Postop diagnosis: 1. Choledocholithiasis status post successful ERCP sphincterotomy 2. Large periampullary diverticulum Anesthesia: NIKOLAIA Surgeon / Physician: Sanjeev Ramon Estimated blood loss: none Specimens: none sent Condition: stable Disposition: post procedure unit Results - Labs CBC & BMP: 01/01/17 04:23 01/01/17 04:23 Discharge Plan - Discharge Medications New HYDROcodone/ACETAMIN 7.5-325 [[place] 7.5-325] 1 tablet PO Q4H PRN #20 tablet PRN Reason: Pain No Action Metoprolol Tartrate 100 mg PO BID Triamterene/Hydrochlorothiazid [Triamterene-Hctz 37.5-25 mg Tb] 1 each PO BID Bimatoprost 0.01% Oph Soln [Lumigan] 1 drop BOTH EYES BEDTIME - Follow Up or Referral Follow Up: Eric Rangel MD [Physician] - 2 Weeks - Forms/Instructions
[2017-01-01] MEDS ORDERED: SUGAMMADEX 200 MG/2 ML VIAL IV ONE (11:52)
--- NOTE | 2017-01-01 12:06 | Anesthesia Post-Op ---
Anesthesia Post OP - Post Ansesthetic Evaluation Patient seen in post op: Yes Resp: within normal limits CV: within normal limits Mental: within normal limits Temp: within normal limits Xjcy-Un-Oudwaigix: within normal limits Nausea and Vomiting: within normal limits Pain: within normal limits
--- NOTE | 2017-01-01 13:14 | Fluoroscopy Report ---
History: Retained choledochal stone on cholangiogram Date: 01/01/2017 Study: ERCP Comparison exam: Intraoperative cholangiogram 12/31/2016 Contrast material was injected into the pancreatic and common bile ducts in a retrograde fashion via endoscopy by Dr. Ramon. Fluoroscopy time: 7 minutes 35 seconds Fluoroscopic images captured and archived: 11 There is no extravasation of contrast material from the cystic duct stump. Initially, there was some ill-defined filling defect in the distal most common duct suspicious for choledocholithiasis. Subsequent films document passage of balloon catheter through the duct without difficulty. 8 mm sphincterotomy was reportedly performed without difficulty. No definite residual stones are identified post procedure. The partially visualized intrahepatic ducts are normal in caliber. The partially opacified pancreatic duct is normal where seen. There is a large periampullary duodenal diverticulum. Impression: Films document ERCP and sphincterotomy. No definite residual choledochal stones persist post procedure PROCEDURE INTERPRETED AT [facility] DEPARTMENT OF RADIOLOGY Final Report Signed by: Dr. Georgia Lockwood
--- NOTE | 2017-01-01 15:04 | Event Note ---
General Surgery Progress Note Chief complaint This patient is a 61-year-old woman admitted with cholecystitis treated with laparoscopic cholecystectomy with intraoperative cholangiogram showing to retained stone in the bile duct on 12/31/2016 Interval history This is a delayed entry note for an encounter I had with this patient around 7 AM on 01/01/2017. The patient is doing well overall. She was awaiting ERCP today. The procedure has since been done and was successful at stone removal with sphincterotomy. Physical exam The patient is afebrile. She has a low-grade tachycardia. Blood pressure is normal Abdominal exam reveals expected postoperative tenderness Labs None new Imaging None new Assessment and plan The patient did well apparently with her ERCP today but I have not seen her since this morning's visit I would be okay with the patient going home when she is ready from gastroenterology standpoint but from my standpoint she should be ready to go as soon as she is tolerating a diet and her pain is well controlled I have placed a prescription for pain medication in the patient's chart.
[2017-01-01] MEDS: MORPHINE 2 MG/1 ML SYRINGE IV PRN (20:32)
[2017-01-02] MEDS: MORPHINE 2 MG/1 ML SYRINGE IV PRN ×5 (00:25→21:01)
--- NOTE | 2017-01-02 03:53 | Event Note ---
General Surgery Progress Note Chief complaint This patient is a 61-year-old woman admitted with cholecystitis treated with laparoscopic cholecystectomy with intraoperative cholangiogram showing to retained stone in the bile duct on 12/31/2016 Interval history The patient had an ERCP yesterday with sphincterotomy and stone removal. She did have a temperature last night of 101.4 but she defervesced by the time I saw her this morning. She is still mildly tachycardic. She says she feels well and she is tolerating her diet with no nausea or vomiting. She is still having some abdominal pain related to her incisions but nothing unexpected. Physical exam The patient is afebrile but had a temp of 101.4 last night. She has a low- grade tachycardia. Blood pressure is normal Abdominal exam reveals expected postoperative tenderness Labs Pending Imaging None new Assessment and plan Follow-up labs this morning Okay to discharge home if labs are acceptable and patient tolerates breakfast and has no more fevers.
[2017-01-02] MEDS: metroNIDAZOLE INJ 500 MG in PREMIX 1 EACH IV SCH ×3 (06:07→20:49)
[2017-01-02 07:01] LABS: Basophils % 0.2 % (0.0-0.8); Eosinophils % 0.1 % (0.00-10.9); Hematocrit 29.6 VOL% (35.7-47.0); Hemoglobin 9.8 GM/DL (12.0-16.0); Immature Granulocytes % 0.7 %; Lymphocytes # 1.3 10*3/uL (1.4-4.0); Lymphocytes % 9.5 % (21.3-54.2); Mean Corpuscular HGB Conc 33.1 GM/DL (32-36); Mean Corpuscular Hemoglobin 30 PG (27-34); Mean Corpuscular Volume 90.8 FL (87-102); Mean Platelet Volume 9.6 FL (9.6-12.0); Monocytes # 0.9 10*3/uL (0.11-0.8); Neutrophils # 11.1 10*3/uL (1.4-7.4); Neutrophils % 82.5 % (38.7-73.9); Platelet Count 183 T/CUMM (130-400); Red Blood Count 3.26 MC/CUMM (3.8-5.5); White Blood Count 13.4 T/CUMM (4-12)
[2017-01-02 07:38] LABS: Albumin 1.9 G/DL (3.4-5.0); Bilirubin,Total 0.7 MG/DL (0.2-1.0); Osmolality,Calculated 279.4 MOS/KG (273-304); Potassium 3.4 MMOL/L (3.5-5.1); Total Protein 5.4 G/DL (6.4-8.3)
[2017-01-02] MEDS: PANTOPRAZOLE 40 MG TABLET PO SCH (10:01)
[2017-01-02] MEDS: ENOXAPARIN 40 MG/0.4 ML SYRINGE SUBCUT SCH (10:01)
[2017-01-02] MEDS: CIPROFLOXACIN INJ 400 MG in PREMIX 1 EACH IV SCH ×2 (10:02→21:57)
--- NOTE | 2017-01-02 10:32 | Gastrointestinal Progress Note ---
<Raven Garcia - Last Filed: 01/02/17 10:30> Assessment and Plan (1) Abdominal pain Status: Acute Assessment and plan: 01/02-abdominal discomfort postoperatively. ERCP findings noted. Afebrile overnight now improved. Tolerating small amounts of diet. Plan an addendum to followed by Dr. Ramon. 12/31-abrupt onset of abdominal pain with associated nausea vomiting with findings of cholecystitis with pneumobilia. Post laparoscopic cholecystectomy with intraoperative cholangiogram showing 2 retained stones distal to the cystic duct within the common bile duct. Normal LFTs. Plan to proceed with ERCP tomorrow to further evaluate. Plan an addendum to follow Dr. Ramon. Current Visit: Yes Gastroenterology - PN: Subj Interval history: CC: Post ERCP Patient is seen, awake alert sitting up in chair. States that she rested fairly well last night. She is status post ERCP with sphincterotomy and stone removal on yesterday. She is noted to have become febrile overnight at 101.4 however she is now afebrile this time. She is having normal postoperative pain at this time. States she feels like she has a lot of gas on her belly. She is eating small amounts of her diet at this time. Lipase levels are unremarkable at 228. WBCs are 13,000. Abdomen is soft, tender to palpation. ROS: Denies shortness breath or chest Exam (Progress Note) - Constitutional Vitals: Period Temp Pulse Resp BP Sys/Jacome Pulse Ox Last 24 Hr 98.1 F-101.4 F 102-117 14-22 102-147/57-81 92-99 General appearance: normal weight, no acute distress - Head Head exam: Present: normal inspection, normocephalic - Eye Eye exam: Present: other (Lids and conjunctive are unremarkable). Absent: scleral icterus - ENT ENT exam: Present: normal exam, normal oropharynx - Neck Neck exam: Present: normal inspection - Respiratory Respiratory exam: Present: clear to auscultation bilaterally. Absent: rales, rhonchi, wheezes - Cardiovascular Cardiovascular exam: Present: regular rate and rhythm. Absent: diastolic murmur , JVD, systolic murmur - GI/Abdominal GI/Abdominal exam: Present: normal bowel sounds, soft. Absent: ascites, distended, mass, organomegaly, tenderness - Extremities Exam Extremities exam: Present: normal inspection, full ROM - Back Exam Back exam: Present: normal inspection - Neurological Exam Neurological exam: Present: alert, oriented X3 - Psychiatric Psychiatric exam: Present: normal affect, normal mood - Skin Skin exam: Present: normal color, warm, dry Results - Labs CBC & BMP: 01/02/17 06:46 01/02/17 06:46 Lab Results: I have reviewed the past 24 hour labs Specialty Discharge - Follow Up or Referrals Follow up with: Eric Rangel MD [Physician] - 01/14/17 9:45 am <Sanjeev Ramon - Last Filed: 01/02/17 15:01> Exam (Progress Note) - Constitutional Vitals: Period Temp Pulse Resp BP Sys/Jacome Pulse Ox Last 24 Hr 98.1 F-101.4 F 102-117 14-20 102-146/57-88 94-98 Results - Labs CBC & BMP: 01/02/17 06:46 01/02/17 06:46
--- NOTE | 2017-01-02 10:39 | Hospitalist Progress Note ---
Assessment and Plan (1) Pancreatitis Status: Acute Assessment and plan: She is not complaining of abdominal pain, nausea, or vomiting. She is stable 1 day status post ERCP with sphincterotomy and balloon stone extraction. Current Visit: Yes (2) Hypokalemia Status: Acute Assessment and plan: Her potassium today is 3.4. She will receive potassium chloride replacement therapy Current Visit: Yes (3) Cholecystitis Status: Acute Assessment and plan: She is stable status post cholecystectomy. Current Visit: Yes (4) Renal insufficiency Status: Acute Assessment and plan: Her BUN and creatinine today are 12 and 0.9. They were 16 and 1.2 on admission. She will continue to receive sodium chloride 0.9% intravenous infusion. Her acute kidney injury has resolved. Current Visit: Yes Hospitalist: Subjective Interval history: She is complaining of mild postprocedural abdominal pain. She is not experiencing nausea or vomiting. She is tolerating clear liquids but does not wish to advance her diet. She continues to be followed by gastroenterology. Exam - Constitutional Vitals: Period Temp Pulse Resp BP Sys/Jacome Pulse Ox Last 24 Hr 98.1 F-101.4 F 102-117 14-22 102-147/57-81 92-99 General appearance: no acute distress - Head Head exam: Present: normal inspection - Neck Neck exam: Present: normal inspection - Respiratory Respiratory exam: Present: clear to auscultation bilaterally - Cardiovascular Cardiovascular exam: Present: regular rate and rhythm - GI/Abdominal GI/Abdominal exam: Present: normal bowel sounds, soft, other (Nontender with no palpable masses or hepatosplenomegaly.) - Extremities Exam Extremities exam: Present: normal inspection - Skin Skin exam: Present: normal color, warm, intact Results - Labs CBC & BMP: 01/02/17 06:46 01/02/17 06:46 Specialty Discharge - Follow Up or Referrals Follow up with: Eric Rangel MD [Physician] - 01/14/17 9:45 am
[2017-01-02] MEDS ORDERED: ALUMINUM/MAGNES/SIMETH MAX STR 30 ML UDCUP PO PRN (14:16)
[2017-01-02] MEDS: SODIUM CHLORIDE 0.9% 1,000 ML IV SCH ×3 (19:06→19:08)
[2017-01-02] MEDS: ALBUTEROL/IPRATROPIUM 3 ML NEB RESP TX PRN (20:25)
[2017-01-02] MEDS: FLUTICASONE 50 MCG NASAL SPRAY 16 GM BOTTLE BOTH NARES SCH (20:49)
[2017-01-02] MEDS: TRIAMTERENE/HCTZ 37.5-25 MG TABLET PO SCH (20:51)
[2017-01-02] MEDS: METOPROLOL TARTRATE 100 MG TABLET PO SCH (20:51)
[2017-01-02] MEDS ORDERED: BIMATOPROST 0.01% OPH SOLN 2.5 ML BOTTLE BOTH EYES SCH (21:00)
[2017-01-03] MEDS: POTASSIUM CHLORIDE RIDER 10 MEQ in PREMIX 1 EACH IV PRN ×3 (00:13→06:00)
[2017-01-03] MEDS: ALBUTEROL/IPRATROPIUM 3 ML NEB RESP TX PRN (04:08)
[2017-01-03 04:18] LABS: Basophils # 0.1 10*3/uL (0.0-0.2); Basophils % 0.5 % (0.0-0.8); Eosinophils # 0.1 10*3/uL (0.0-0.87); Eosinophils % 1.1 % (0.00-10.9); Hematocrit 28.3 VOL% (35.7-47.0); Hemoglobin 9.4 GM/DL (12.0-16.0); Immature Granulocytes % 0.6 %; Immature Granulocytes Absolute 0.08 #; Lymphocytes # 1.8 10*3/uL (1.4-4.0); Lymphocytes % 14.1 % (21.3-54.2); Mean Corpuscular HGB Conc 33.2 GM/DL (32-36); Mean Corpuscular Hemoglobin 30 PG (27-34); Mean Corpuscular Volume 90.4 FL (87-102); Mean Platelet Volume 9.9 FL (9.6-12.0); Monocytes % 7.4 % (1.7-12.7); Neutrophils # 9.9 10*3/uL (1.4-7.4); Neutrophils % 76.3 % (38.7-73.9); Platelet Count 214 T/CUMM (130-400); Red Blood Count 3.13 MC/CUMM (3.8-5.5)
[2017-01-03] MEDS: metroNIDAZOLE INJ 500 MG in PREMIX 1 EACH IV SCH (04:30)
[2017-01-03 04:46] LABS: Albumin 1.8 G/DL (3.4-5.0); Calcium 8.1 MG/DL (8.5-10.1); Osmolality,Calculated 278.4 MOS/KG (273-304)
[2017-01-03 08:06] VITALS: BP 121/75
[2017-01-03] MEDS: CIPROFLOXACIN INJ 400 MG in PREMIX 1 EACH IV SCH (09:04)
[2017-01-03] MEDS: ENOXAPARIN 40 MG/0.4 ML SYRINGE SUBCUT SCH (09:21)
[2017-01-03] MEDS: FLUTICASONE 50 MCG NASAL SPRAY 16 GM BOTTLE BOTH NARES SCH (09:22)
[2017-01-03] MEDS: METOPROLOL TARTRATE 100 MG TABLET PO SCH (09:22)
[2017-01-03] MEDS: TRIAMTERENE/HCTZ 37.5-25 MG TABLET PO SCH (09:23)
[2017-01-03] MEDS: HYDROmorphone 2 MG/1 ML VIAL IV PRN (09:23)
[2017-01-03] MEDS: PANTOPRAZOLE 40 MG TABLET PO SCH (09:23)
--- NOTE | 2017-01-03 10:19 | Discharge Summary ---
Hospital Course - Hospital Course Hospital Course: This patient was admitted with acute cholecystitis. She has some imaging findings of air in the distal bile duct and pancreatic duct on her CT scan but she does not appear to have cholangitis clinically and there are no stones seen there. She has no biliary ductal dilation and her bilirubin is normal. Her lipase was not elevated enough to classify her as pancreatitis. He is not having tenderness in the area of pancreatitis and clinically I do not think she meets a diagnosis of this. I have recommended a laparoscopic cholecystectomy with intraoperative cholangiogram to evaluate findings seen on her CT scan and her distal bile duct and pancreatic duct. I do not believe this represents some sort of fistula based on her CT scan. Patient was admitted to the hospital with diagnosis of acute cholecystitis. She underwent a cholecystectomy by Dr. Eric Rangel on 12/31/16. He underwent an ERCP with sphincterotomy and balloon stone extraction by Dr. Tristen Pace on . She tolerated both procedures with no complications. At the time of her discharge she was comfortable, eating a bland diet, and walking in the [place] with no difficulty. Diagnosis - Discharge Diagnosis (1) Pancreatitis Status: Acute (2) Hypokalemia Status: Acute (3) Cholecystitis Status: Acute (4) Renal insufficiency Status: Acute Specialty Discharge - Follow Up or Referrals Follow up with: Eric Rangel MD [Physician] - 01/14/17 9:45 am Discharge Plan - Discharge Data Disposition: Disch To Home/Self Care Condition at Discharge: Stable Discharge Diet: advance to your usual diet Activity: resume usual activities as tolerated - Discharge Medications New HYDROcodone/ACETAMIN 7.5-325 [[place] 7.5-325] 1 tablet PO Q4H PRN #20 tablet PRN Reason: Pain Continue Metoprolol Tartrate 100 mg PO BID Triamterene/Hydrochlorothiazid [Triamterene-Hctz 37.5-25 mg Tb] 1 each PO BID Bimatoprost 0.01% Oph Soln [[place]umigan] 1 drop BOTH EYES BEDTIME - Follow Up or Referral Follow Up: Eric Rangel MD [Physician] - 01/14/17 9:45 am - Forms/Instructions Exam - Constitutional Vitals: Period Temp Pulse Resp BP Sys/Jacome Pulse Ox Last 24 Hr 97.4 F-99.6 F 82-112 18-22 121-144/74-88 95-99 Discharge Results Procedures and tests throughout hospitalization: Pending Orders 12/31/16 04:46 Blood Culture Stat Labs on day of discharge: Labs from last 24 hours 01/03/17 01/03/17 03:43 03:43 WBC 13.0 H RBC 3.13 L Hgb 9.4 L Hct 28.3 L MCV 90.4 MCH 30 MCHC 33.2 RDW 13.0 Plt Count 214 MPV 9.9 Neut % (Auto) 76.3 H Lymph % (Auto) 14.1 L [place] % (Auto) 7.4 Eos % (Auto) 1.1 Baso % (Auto) 0.5 Neut # (Auto) 9.9 H Lymph # (Auto) 1.8 [place] # (Auto) 1.0 H Eos # (Auto) 0.1 Baso # (Auto) 0.1 Immature Gran % 0.6 Nucleated RBC % 0.0 Immature Gran # 0.08 Nucleated RBCs # 0.00 Immature Plt Fraction 0.0 Sodium 140 Potassium 4.0 Chloride 105 Carbon Dioxide 30 Anion Gap 9.0 BUN 10 Creatinine 0.90 GFR Calculation 74 BUN/Creatinine Ratio 11.00 Glucose 113 H Calculated Osmolality 278.4 Calcium 8.1 L Total Bilirubin 1.00 AST 16 ALT 31 Alkaline Phosphatase 65 Total Protein 5.0 L Albumin 1.8 L Globulin 3.2 Albumin/Globulin Ratio 0.5 L Lipase 202.0 D Preliminary micro results at discharge 12/31/16 04:46 Blood Culture - Preliminary Blood No growth at 3 days 12/31/16 04:46 Blood Culture - Preliminary Blood No growth at 3 days DS: Provider Date of admission: 12/31/16 00:00 Primary care physician: . Milly PCP Attending physician on admission: Jose David Palencia MD Consults: 12/31/16 03:05 Consult to Physician [CONS] Routine Comment: cholecystitis Consulting Provider: Eric Rangel 12/31/16 07:43 Consult to Anesthesiology [CONS] Routine Consulting Provider: Reason for Anesthesiology: Pre-op Clearance Discharging clinician: Jorge Randle
--- NOTE | 2017-01-03 10:29 | Event Note ---
The patient was kept yesterday. She is doing well today and she is having bowel movements and passing gas. She is tolerating her diet well. My understanding is she will go home today. She has been instructed to call for follow-up on Thursday of next week and I have artery and the prescription for pain medicine.
== END 2017-01-03 11:40 | disposition home or self-care (01) | DRG 418 ==
LOC: N.ED 21:25 → N.EDINP 12-31 → SUATTDRO 12-31 → N.2E 12-31 00:32
PROVIDERS: ADMIT Internal Medicine
PROC: LAPCHOL (2016-12-31 08:30)
PROC: ERCPWSP (ICD-10-PCS; 2017-01-01 09:35)